=== PATIENT | male | born 1965 | race Caucasian/White ===

== ENCOUNTER 2018-07-22 15:44 | Emergency (ER) | payer MEDICAID ==
[~2018-07-22] VITALS: Ht 177.8 cm; Wt 104.3 kg
[2018-07-22 16:01] VITALS: Ht 177.8 cm; Wt 104.3 kg
[2018-07-22 16:32] LABS: BASOPHIL % 0.5 % (0-2); PLATELET COUNT 225 x10^3mcL (130-400); RED CELL DISTRIBUTION WIDTH 13.6 % (11.5-14.5)
[2018-07-22 16:40] LABS: CALCIUM 8.6 mg/dL (8.5-10.1); CARBON DIOXIDE 28.2 mmol/L (21-32); CHLORIDE SERUM 104 mmol/L (98-107); CREATININE SERUM 1.2 mg/dL (0.7-1.3); GFR1 > 60 mL/min; GLUCOSE SERUM 112 mg/dL (74-106); POTASSIUM SERUM 3.9 mmol/L (3.5-5.1); SODIUM SERUM 140 mmol/L (136-145)
[2018-07-22 16:45] LABS: ALBUMIN 3.7 g/dL (3.4-5.0); ALKALINE PHOSPHATASE 59 U/L (46-116); ALT/SGPT 35 U/L (16-63); AST/SGOT 24 U/L (15-37); BILIRUBIN TOTAL 0.2 mg/dL (0.20-1.00); PHOSPHOROUS 3.1 mg/dL (2.5-4.9); TOTAL PROTEIN, SERUM 7.5 g/dL (6.4-8.2)
[2018-07-22 16:50] LABS: CHOLESTEROL 249 mg/dL (<200); HDL CHOLESTEROL 28 mg/dL (40-60)
[2018-07-22 17:57] VITALS: BP 154/73
== END 2018-07-22 17:57 | disposition home or self-care (01) ==
LOC: ED 15:44
PROVIDERS: Emergency Medicine
DX: I16.0 Hypertensive urgency (principal); R42 Dizziness and giddiness; R51 Headache
CPT/HCPCS: J1885; J2060; Q0092

== ENCOUNTER 2018-07-25 20:29 | Inpatient (IN) | payer MEDICAID ==
[~2018-07-25] VITALS: Ht 177.8 cm; Wt 106.6 kg
[2018-07-25 20:45] VITALS: Ht 177.8 cm; Wt 106.6 kg
[2018-07-25 21:23] LABS: BASOPHIL % 0.3 % (0-2); PLATELET COUNT 240 x10^3mcL (130-400); RED CELL DISTRIBUTION WIDTH 13.6 % (11.5-14.5)
[2018-07-25 21:51] LABS: CALCIUM 9.2 mg/dL (8.5-10.1); CARBON DIOXIDE 24.8 mmol/L (21-32); CHLORIDE SERUM 103 mmol/L (98-107); CREATININE SERUM 1.1 mg/dL (0.7-1.3); GFR1 > 60 mL/min; GLUCOSE SERUM 97 mg/dL (74-106); POTASSIUM SERUM 3.6 mmol/L (3.5-5.1); SODIUM SERUM 142 mmol/L (136-145)
[2018-07-25 21:58] LABS: ALBUMIN 4.1 g/dL (3.4-5.0); ALKALINE PHOSPHATASE 62 U/L (46-116); ALT/SGPT 39 U/L (16-63); AMYLASE 29 U/L (25-115); AST/SGOT 24 U/L (15-37); BILIRUBIN TOTAL 0.4 mg/dL (0.20-1.00); LIPASE 111 IU/L (73-393); MAGNESIUM 2.2 mg/dL (1.8-2.4); TOTAL PROTEIN, SERUM 8.1 g/dL (6.4-8.2)
[2018-07-25 21:59] LABS: CHOLESTEROL 220 mg/dL (<200); HDL CHOLESTEROL 31 mg/dL (40-60)
[2018-07-25 22:16] LABS: microscopic required? NO
[2018-07-25 22:25] LABS: UA SPECIFIC GRAVITY <=1.005 (1.005-1.035); urine erythrocyte NEGATIVE (NEGATIVE)
[2018-07-25 22:33] LABS: AMPHETAMINE QUAL UR NONE DETECTED (See below)
[2018-07-26] MEDS ORDERED: ZESTRIL20 MG PO (00:27)
[2018-07-26] MEDS ORDERED: TRAMADOL HCL50 MG PO (00:27)
[2018-07-26] MEDS ORDERED: FLUOXETINE HYDR10 M1 (00:27)
[2018-07-26 00:48] VITALS: BP 140/84
[2018-07-26 06:27] VITALS: BP 99/65
[2018-07-26 06:36] LABS: BASOPHIL % 0.4 % (0-2); PLATELET COUNT 220 x10^3mcL (130-400); RED CELL DISTRIBUTION WIDTH 13.4 % (11.5-14.5)
[2018-07-26 07:11] LABS: CALCIUM 8.7 mg/dL (8.5-10.1); CARBON DIOXIDE 28.6 mmol/L (21-32); CHLORIDE SERUM 105 mmol/L (98-107); CREATININE SERUM 1.1 mg/dL (0.7-1.3); GFR1 > 60 mL/min; GLUCOSE SERUM 100 mg/dL (74-106); MAGNESIUM 2.1 mg/dL (1.8-2.4); PHOSPHOROUS 4.6 mg/dL (2.5-4.9); POTASSIUM SERUM 4.1 mmol/L (3.5-5.1); SODIUM SERUM 142 mmol/L (136-145)
[2018-07-26 09:54] VITALS: BP 115/71
[2018-07-26] MEDS ORDERED: ZES20 PO (10:55)
[2018-07-26 11:12] VITALS: BP 115/71
== END 2018-07-26 12:20 | disposition home or self-care (01) | DRG 199 ==
LOC: ED 20:29 → DU 23:00
PROVIDERS: Emergency Medicine; ADMIT Internal Medicine
DX: I10 Essential (primary) hypertension (principal); E78.5 Hyperlipidemia, unspecified; F41.9 Anxiety disorder, unspecified; Z91.14 Patient's other noncompliance with medication regimen; Z68.30 Body mass index [BMI] 30.0-30.9, adult
CPT/HCPCS: 82962; 83880; Q0092

== ENCOUNTER 2019-04-30 22:33 | Inpatient (IN) | payer OTHER ==
[~2019-04-30] VITALS: Ht 177.8 cm; Wt 93.0 kg
[~2019-04-30 22:33] MED LIST: FLUOXETINE HYDR10 M1; TRAMADOL HCL50 MG PO; ZES20 PO; ZESTRIL20 MG PO
[2019-04-30 23:18] LABS: BASOPHIL % 0.5 % (0-2); PLATELET COUNT 258 x10^3mcL (130-400); RED CELL DISTRIBUTION WIDTH 14.8 % (11.5-14.5)
[2019-04-30 23:24] LABS: CALCIUM 9.2 mg/dL (8.5-10.1); CARBON DIOXIDE 29.4 mmol/L (21-32); CREATININE SERUM 1.4 mg/dL (0.7-1.3); POTASSIUM SERUM 4.3 mmol/L (3.5-5.1)
[2019-04-30 23:30] LABS: BILIRUBIN TOTAL 0.47 mg/dL (0.20-1.00); TOTAL PROTEIN, SERUM 7.6 g/dL (6.4-8.2)
[2019-05-01] MEDS ORDERED: ESCITALOPRAM20 M1 PO (01:49)
[2019-05-01] MEDS ORDERED: CLONAZEPAM1 MG PO (01:50)
[2019-05-01 02:37] VITALS: BP 138/82
[2019-05-01 04:55] VITALS: BP 110/75
[2019-05-01 06:16] LABS: microscopic required? NO
[2019-05-01 06:35] LABS: BASOPHIL % 0.5 % (0-2); PLATELET COUNT 229 x10^3mcL (130-400)
[2019-05-01 06:50] LABS: RED CELL DISTRIBUTION WIDTH 14.8 % (11.5-14.5)
[2019-05-01 06:53] LABS: CALCIUM 8.9 mg/dL (8.5-10.1); CARBON DIOXIDE 32.6 mmol/L (21-32); CREATININE SERUM 1.4 mg/dL (0.7-1.3); MAGNESIUM 2.1 mg/dL (1.8-2.4); PHOSPHOROUS 3.9 mg/dL (2.5-4.9); POTASSIUM SERUM 4.5 mmol/L (3.5-5.1)
[2019-05-01 08:00] LABS: AMPHETAMINE QUAL UR NONE DETECTED (See below)
[2019-05-01 08:22] LABS: UA SPECIFIC GRAVITY <=1.005 (1.005-1.035); urine erythrocyte NEGATIVE (NEGATIVE)
[2019-05-01 08:44] VITALS: BP 152/93
[2019-05-01 13:36] VITALS: BP 131/84
[2019-05-01 16:59] VITALS: BP 143/93
[2019-05-01 20:56] VITALS: BP 135/86
[2019-05-02 05:57] VITALS: BP 107/69
[2019-05-02 06:45] LABS: BASOPHIL % 0.2 % (0-2); PLATELET COUNT 231 x10^3mcL (130-400)
[2019-05-02 07:38] LABS: CALCIUM 8.6 mg/dL (8.5-10.1); CARBON DIOXIDE 30.3 mmol/L (21-32); CREATININE SERUM 1.4 mg/dL (0.7-1.3); PHOSPHOROUS 3.9 mg/dL (2.5-4.9); POTASSIUM SERUM 5.3 mmol/L (3.5-5.1)
[2019-05-02 09:27] VITALS: BP 128/80
[2019-05-02 11:03] VITALS: BP 128/80
[2019-05-02] MEDS ORDERED: NORVASC2.5 MG PO (11:35)
[2019-05-02] MEDS ORDERED: LIPITOR40 MG PO (11:35)
== END 2019-05-02 12:00 | disposition home or self-care (01) | DRG 199 ==
LOC: ED 22:33 → DU 05-01 00:05
PROVIDERS: Emergency Medicine; ADMIT Internal Medicine
DX: I16.1 Hypertensive emergency (principal); N17.0 Acute kidney failure with tubular necrosis; E87.5 Hyperkalemia; F32.9 Major depressive disorder, single episode, unspecified; E78.5 Hyperlipidemia, unspecified
CPT/HCPCS: G0378; J7030; Q0092

== ENCOUNTER 2019-05-03 16:52 | Emergency (ER) | payer OTHER ==
[~2019-05-03] VITALS: Ht 177.8 cm; Wt 95.3 kg
[~2019-05-03 16:52] MED LIST changes: +CLONAZEPAM1 MG PO; +ESCITALOPRAM20 M1 PO; +LIPITOR40 MG PO; +NORVASC2.5 MG PO
[2019-05-03 16:54] VITALS: Ht 177.8 cm; Wt 95.3 kg
[2019-05-03 17:55] LABS: AMPHETAMINE QUAL UR NONE DETECTED (See below)
[2019-05-03 18:07] LABS: BASOPHIL % 0.7 % (0-2); PLATELET COUNT 255 x10^3mcL (130-400); RED CELL DISTRIBUTION WIDTH 14.5 % (11.5-14.5)
[2019-05-03 18:13] LABS: CALCIUM 8.9 mg/dL (8.5-10.1); CARBON DIOXIDE 25.9 mmol/L (21-32); CHLORIDE SERUM 104 mmol/L (98-107); CREATININE SERUM 1.3 mg/dL (0.7-1.3); GFR1 > 60 mL/min; GLUCOSE SERUM 101 mg/dL (74-106); POTASSIUM SERUM 3.8 mmol/L (3.5-5.1); SODIUM SERUM 141 mmol/L (136-145)
[2019-05-03 18:18] LABS: ALBUMIN 3.8 g/dL (3.4-5.0); ALKALINE PHOSPHATASE 85 U/L (46-116); ALT/SGPT 42 U/L (16-63); AST/SGOT 24 U/L (15-37); BILIRUBIN TOTAL 0.6 mg/dL (0.20-1.00); MAGNESIUM 2.1 mg/dL (1.8-2.4); TOTAL PROTEIN, SERUM 7.6 g/dL (6.4-8.2)
[2019-05-03 18:20] VITALS: BP 142/89
== END 2019-05-03 19:04 | disposition home or self-care (01) ==
LOC: ED 16:52
PROVIDERS: Emergency Medicine
DX: F41.9 Anxiety disorder, unspecified (principal); F32.9 Major depressive disorder, single episode, unspecified; I10 Essential (primary) hypertension; Z90.89 Acquired absence of other organs; Z98.890 Other specified postprocedural states
CPT/HCPCS: 36415; G0480; J2060

== ENCOUNTER 2019-12-31 17:21 | Emergency (ER) | payer OTHER ==
[~2019-12-31] VITALS: Ht 177.8 cm; Wt 111.1 kg
[2019-12-31 17:29] VITALS: Ht 177.8 cm; Wt 111.1 kg
[2019-12-31 19:05] VITALS: BP 116/75
== END 2019-12-31 19:05 | disposition home or self-care (01) ==
LOC: ED 17:21
DX: H10.213 Acute toxic conjunctivitis, bilateral (principal); I10 Essential (primary) hypertension; Z98.890 Other specified postprocedural states; Z90.89 Acquired absence of other organs
CPT/HCPCS: J7040; V2632